=== PATIENT | female | born 1985 | race Two or more races ===

== ENCOUNTER 2020-07-28 12:59 | Outpatient (REF) | payer MEDICAID, SELFPAY | END 2020-07-28 13:00 | disposition home or self-care (01) | LOC: HO.LAB 12:59 | PROVIDERS: Visit Provider Internal Medicine | DX: Z20.828 Contact with and (suspected) exposure to other viral communicable diseases (principal) | CPT/HCPCS: C9803; U0003 ==

== ENCOUNTER → 2022-07-04 08:49 | Outpatient (BNVA) | payer OTHER, SELFPAY | PROVIDERS: Visit Provider Nurse Practitioner Family | DX: G43.109 Migraine with aura, not intractable, without status migrainosus (principal); K59.00 Constipation, unspecified | CPT/HCPCS: 99202 ==

== ENCOUNTER → 2022-09-12 09:14 | Outpatient (BNVA) | payer OTHER, SELFPAY | PROVIDERS: PCP Physician Assistant; Visit Provider Nurse Practitioner Family | DX: G43.109 Migraine with aura, not intractable, without status migrainosus (principal); R11.0 Nausea; K59.00 Constipation, unspecified | CPT/HCPCS: 99212 ==

== ENCOUNTER → 2022-11-14 09:21 | Outpatient (BNVA) | payer OTHER, SELFPAY | PROVIDERS: PCP Physician Assistant; Visit Provider Nurse Practitioner Family | DX: G43.109 Migraine with aura, not intractable, without status migrainosus (principal); R41.3 Other amnesia; K59.00 Constipation, unspecified | CPT/HCPCS: 99212 ==

== ENCOUNTER 2023-09-02 08:37 | Outpatient (AMB) | payer OTHER, SELFPAY ==
--- NOTE | 2023-09-02 08:40 | MHC.OFFVIS ---
Intake Vital Signs 09/02/23 08:41 Height 5 ft 4 in Weight 207 lb 6 oz BMI 35.6 BP 132/78 Blood Pressure Location Rt brachial Position Sitting Pulse 62 Pulse Source Pulse Oximeter Pulse Oximetry (%) 96 Oxygen Delivery Method Room Air Intake Visit Reasons: Follow up - Migraines - LVM Intake Note: Patient presents for migraines Allergies amoxicillin Allergy (Unknown, Verified 09/02/23 08:42) Blister azithromycin Allergy (Unknown, Verified 09/02/23 08:42) Hives apples Allergy (Severe, Uncoded 09/02/23 08:42) Anaphylaxis seasonal fruit Allergy (Severe, Uncoded 09/02/23 08:42) itchy throat HPI HPI Comments History of Present Illness Details 37-yr-old female presents for f/u visit. Pt denies any significant interval medical changes. She has been seeing [facility]- for BUE L > R numbness and tingling. She had cortisone injections which were unhelpful. She had a BUE NCS at [facility] She is working with Dr Ba for neck pain, pt states she has disc disease specifically at C5-C6. She states has been advised to retry PT, and if ineffective, she may need c-spine surgery. She also wonders about her chronic low back pain. She had an MRI sometime last yr, which was abnormal. Pt states she plans to discuss these results w/ Dr Ba. She wonders if the neck pain is worsening her headaches. Overall, atogepant is still helping- having a couple of headaches per week.. [facility] Medical History (Updated 09/07/23 @ 22:39 by LONA Jones) Memory difficulties Heart murmur Depression Bronchitis Arthritis Restless leg syndrome Anemia GERD (gastroesophageal reflux disease) Surgical History H/O hernia repair H/O tubal ligation History of tonsillectomy History of surgery on lower extremity Family History Family/Other Bipolar 1 disorder Brain cancer Ovarian ca Diabetes Emphysema of left lung HTN (hypertension) Thyroid disease Allergic rhinitis Sarcoma Social History Alcohol intake: current Patient Tobacco Use Status: Current everyday Tobacco user Substance Use Type: Marijuana Review of Systems Const All systems reviewed & are unremarkable except as noted in HPI and below Physical Exam Vital Signs: Last Vital Signs Pulse 62 09/02/23 08:41 BP 132/78 09/02/23 08:41 Pulse Ox 96 09/02/23 08:41 Oxygen Delivery Method Room Air 09/02/23 08:41 BMI result Body Mass Index 35.6 Const General: cooperative and no acute distress Orientation/consciousness: patient oriented x3 HEENT Head: Yes normocephalic Resp Effort & Inspection: normal respiratory effort and able to speak in complete sentences Neuro General: patient oriented x3, gait normal and CN's II-XI intact bilaterally Cognition (Neuro): normal cognition Motor exam (neuro): 5/5 motor strength present throughout Psych Appearance: grossly normal Mental Status: mental status grossly normal Speech and movement: Normal speech and movement present Affect: normal affect Attitude: cooperative Thought process: Normal thought process present Thought content: Normal thought content present Insight: Good insight present (Psych) Judgement: Good judgement present (Psych) Assessment & Plan Assessment & Plan (1) Chronic migraine with aura: Code(s): G43.109 - Migraine with aura, not intractable, without status migrainosus (2) Constipation: Code(s): K59.00 - Constipation, unspecified (3) Neck pain: Code(s): M54.2 - Cervicalgia (4) Back pain: Code(s): M54.9 - Dorsalgia, unspecified Plan For overall headache management: Continue optimizing good self-care, including but not limited to maintaining a healthy diet and fluid intake, adequate sleep, and engaging in regular physical activity. Track headaches. ? For acute headache treatment: Continue Sumatriptan and Rizatripatn prn- do not take on the same day. Reviewed that either may be repeated after 2 hrs (max 2 whole tabs per day). Ondansetron ODT 8mg q 8-12hrs prn N/V. Previous med trials: Sumatriptan inj- worked, but caused bruising. ? For headache prevention medication: Continue Riboflavin 400mg qam Continue Magnesium 400mg qhs Continue Atogepant 30mg qhs. Continue senna 1-2 tabs qhs prn constipation. Previous med trials- Amitriptyline- Ineffective. Venlafaxine- ineffective, Topiramate- ineffective, Sphenoid-ganglion blocks- ineffective and not tolerated, Nurtec ODT 75mg qod- not tolerated Migraine tx contraindications- BBs d/t asthma/bronchitis. Note: Pt is needle phobic, and is adverse to taking nasal spray formulations. ? For memory loss: Continue being mindful and using adaptive strategies. ? f/u in 5-6 months or sooner prn new/worsening s/s. Coding Level of Care Code Est Pt Level 4 (78210) Diagnoses Chronic migraine with aura G43.109 Constipation K59.00 Neck pain M54.2 Back pain M54.9
[2023-09-02 08:41] VITALS: BP 132/78; PULSE 62; O2SAT 96; BMI 35.6
== END 2023-09-02 09:23 | disposition home or self-care (01) ==
PROVIDERS: PCP Physician Assistant; Visit Provider Nurse Practitioner Family
DX: G43.109 Migraine with aura, not intractable, without status migrainosus (principal); K59.00 Constipation, unspecified; M54.2 Cervicalgia; M54.9 Dorsalgia, unspecified
CPT/HCPCS: 99214

== ENCOUNTER → 2023-09-02 08:37 | Outpatient (BNVA) | payer OTHER, SELFPAY | PROVIDERS: PCP Physician Assistant; Visit Provider Nurse Practitioner Family | DX: G43.109 Migraine with aura, not intractable, without status migrainosus (principal); K59.00 Constipation, unspecified; M54.2 Cervicalgia; M54.9 Dorsalgia, unspecified | CPT/HCPCS: 99212 ==

== ENCOUNTER 2024-02-02 08:04 | Outpatient (AMB) | payer OTHER, SELFPAY ==
--- NOTE | 2024-02-02 08:09 | A.OFFVIS_ITS ---
Vital Signs 02/02/24 08:10 Height 5 ft 4 in Weight 205 lb BMI 35.2 BP 126/78 Blood Pressure Location Rt brachial Position Sitting Pulse 63 Pulse Source Pulse Oximeter Pulse Oximetry (%) 99 Oxygen Delivery Method Room Air Intake Visit Reasons: 5 mnts f/u for migraines-CONF Intake Note: Patient presents for 5 months f/u migraines. Patient needs refill. Allergies amoxicillin Allergy (Unknown, Verified 02/02/24 08:29) Blister azithromycin Allergy (Unknown, Verified 02/02/24 08:29) Hives apples Allergy (Severe, Uncoded 02/02/24 08:29) Anaphylaxis seasonal fruit Allergy (Severe, Uncoded 02/02/24 08:29) itchy throat Medication List - Last Reconciled 02/02/24 by LONA Jones albuterol sulfate 90 mcg/actuation (Ventolin HFA) 2 puffs inhalation Q6H PRN albuterol sulfate mg inhalation Q6H PRN atogepant 30 mg PO DAILY 30 days bupropion HCl 75 mg PO DAILY buspirone 5 mg PO TID cholecalciferol (vitamin D3) 50 mcg PO DAILY clonazepam 1 mg PO BID diclofenac potassium 20 mg PO QID dicyclomine 20 mg PO PRN docusate sodium 100 mg PO BID epinephrine IM DIRECTED esomeprazole magnesium 20 mg PO QAM fluticasone propion-salmeterol 230-21 mcg/actuation (Advair HFA) 2 puffs inhalation BID lubiprostone 24 mcg PO BID magnesium oxide 400 mg PO BEDTIME 30 days meloxicam 7.5 mg PO DAILY montelukast 10 mg PO BEDTIME nabumetone 500 mg PO BID nicotine 1 patch topical DAILY nortriptyline 25 mg PO BEDTIME olopatadine 0.1% 1 drp ophthalmic (eye) BID ondansetron 8 mg PO Q8-12H PRN 30 days prazosin 1 mg PO BEDTIME pregabalin 75 mg PO BID quetiapine 25 mg PO BID riboflavin (vitamin B2) 400 mg PO DAILY 30 days rizatriptan 5 - 10 mg (0.5 - 1 x 10 mg) PO Q2H PRN 21 days sennosides (senna) 8.6 - 17.2 mg (1 - 2 x 8.6 mg) PO BEDTIME PRN 30 days sumatriptan succinate 50 - 100 mg orally at onset of headache, may repeat in 2 hrs PRN; max 2 tabs per day or 4 tabs/week (may take with Ibuprofen) 30 days tiotropium bromide 2.5 mcg/actuation 2 puffs inhalation DAILY venlafaxine ER 37.5 mg PO BEDTIME vortioxetine (Trintellix) 10 mg PO DAILY zolpidem ER 12.5 mg PO BEDTIME PRN HPI Comments Details: 38-yr-old female presents for f/u visit. Pt reports she saw Dr Ba, neurosurgeon, informed her that she has a C5-6 disc bulging to the left. She was advised to undergo c-spine surgery- however she has to quit smoking, which she is working on. She reports she is prone to numbness in her LUE and her whole body. Also can have Right or Left Low back pain shooting down the posterior legs. Has recently done PT- has been ordered a neck stretcher. Pt notes she has is struggling to find housing. She has had 5 severe migraine attacks since the last visit. When she has a severe migraine, she takes her sumatripatn or rizatriptan, but still needs to take a hot shower and lay in a dark room. Baseline headache characteristics: Headache questionnaire: Headache: 6/10, Small pulsating pain, Right frontal, behind the ears, or base of neck, or crown of head. If headache is frontal, she may see spots. Sometimes may have photophobia, phonophobia, osmophobia. Postdrome: Fatigue, low energy Migraine questionnaire: Aura: Sparkling and flashing lights a few minutes before. Headache: Severe 10/10, Feels like an internal jackhammer, pounding holocranial pain a/w Flashing lights, sees black dots, Photophobia, phonophobia, osmophobia, nausea, GI upset, generalized weakness, not quite right in space dizziness, orthostatic, lightheadedness, aggravate arthritis symptoms, itchy/teary eyes, brain fog w/ some stuttering, spacing out, activity intolerance. [facility] Medical History (Updated 09/07/23 @ 22:39 by LONA Jones) Memory difficulties Heart murmur Depression Bronchitis Arthritis Restless leg syndrome Anemia GERD (gastroesophageal reflux disease) Surgical History H/O hernia repair H/O tubal ligation History of tonsillectomy History of surgery on lower extremity Family History Family/Other Bipolar 1 disorder Brain cancer Ovarian ca Diabetes Emphysema of left lung HTN (hypertension) Thyroid disease Allergic rhinitis Sarcoma Social History Alcohol intake: current Patient Tobacco Use Status: Current everyday Tobacco user Substance Use Type: Marijuana Physical Exam Vital Signs: Last Vital Signs Pulse 63 02/02/24 08:10 BP 126/78 02/02/24 08:10 Pulse Ox 99 02/02/24 08:10 Oxygen Delivery Method Room Air 02/02/24 08:10 BMI result Body Mass Index 35.2 Const General: cooperative and no acute distress Orientation/consciousness: patient oriented x3 Resp Effort & Inspection: normal respiratory effort and able to speak in complete sentences Neuro General: patient oriented x3 Cranial nerves: Yes CN's II-XII intact bilaterally Cognition (Neuro): normal cognition Psych Appearance: grossly normal Mental Status: mental status grossly normal Speech and movement: Normal speech and movement present Affect: normal affect Attitude: cooperative Assessment & Plan Assessment & Plan (1) Chronic migraine with aura: Code(s): G43.109 - Migraine with aura, not intractable, without status migrainosus Category: Medical (2) Neck pain: Code(s): M54.2 - Cervicalgia Category: Medical (3) Back pain: Code(s): M54.9 - Dorsalgia, unspecified Category: Medical Plan For overall headache management: Continue optimizing good self-care, including but not limited to maintaining a healthy diet and fluid intake, adequate sleep, and engaging in regular physical activity. Track headaches. For neck and back pain: Continue PT exercises Follow-up w/ Dr Ba. ? For acute headache treatment: Trial Eletriptan 40mg prn, MDD 2 tabs. as sumatriptan and rizatriptan are not always fully effective. In the meantime, continue Sumatriptan and Rizatriptan prn- do not take on the same day. Reviewed that either may be repeated after 2 hrs (max 2 whole tabs per day). Ondansetron ODT 8mg q 8-12hrs prn N/V. Previous med trials: Sumatriptan inj- worked, but caused bruising. ? For headache prevention medication: Continue Riboflavin 400mg qam Continue Magnesium 400mg qhs Continue Atogepant 30mg qhs. Continue senna 1-2 tabs qhs prn constipation. Previous med trials- Amitriptyline- Ineffective. Venlafaxine- ineffective, Topiramate- ineffective, Sphenoid-ganglion blocks- ineffective and not tolerated, Nurtec ODT 75mg qod- not tolerated Migraine tx contraindications- BBs d/t asthma/bronchitis. Note: Pt is needle phobic, and is adverse to taking nasal spray formulations. ? For memory loss: Continue being mindful and using adaptive strategies. ? f/u in 6 months or sooner prn new/worsening s/s. Medications: New eletriptan take 1 tab at onset of headache; if no relief, may repeat 1 tab after at least 2 hrs; max = 2 tabs/24 hrs orally . PRN; 30 days 12 tabs 6RF migraine headache MDD 2 tabs Refilled atogepant 30 mg PO DAILY 30 days 30 tabs 6RF Coding Level of Care Code Est Pt Level 4 (36735) Diagnoses Chronic migraine with aura G43.109 Neck pain M54.2 Back pain M54.9
[2024-02-02 08:10] VITALS: BP 126/78; PULSE 63; O2SAT 99; BMI 35.2
== END 2024-02-02 09:15 | disposition home or self-care (01) ==
PROVIDERS: PCP Physician Assistant; Visit Provider Nurse Practitioner Family
DX: G43.109 Migraine with aura, not intractable, without status migrainosus (principal); M54.2 Cervicalgia; M54.9 Dorsalgia, unspecified
CPT/HCPCS: 99214

== ENCOUNTER → 2024-02-02 08:04 | Outpatient (BNVA) | payer OTHER, SELFPAY | PROVIDERS: PCP Physician Assistant; Visit Provider Nurse Practitioner Family | DX: G43.709 Chronic migraine without aura, not intractable, without status migrainosus (principal); M54.2 Cervicalgia; M54.9 Dorsalgia, unspecified | CPT/HCPCS: 99212 ==

== ENCOUNTER 2024-08-19 12:47 | Outpatient (AMB) | payer OTHER, SELFPAY ==
[2024-08-19 12:59] VITALS: BMI 36.2
--- NOTE | 2024-08-19 12:59 | MHC.OFFVIS ---
Vital Signs 08/19/24 12:59 Height 5 ft 4 in Weight 211 lb BMI 36.2 Intake Visit Reasons: 7 Month F/U Intake Note: Patient present for follow up. Allergies amoxicillin Allergy (Unknown, Verified 08/19/24 13:01) Blister azithromycin Allergy (Unknown, Verified 08/19/24 13:01) Hives apples Allergy (Severe, Uncoded 08/19/24 13:01) Anaphylaxis seasonal fruit Allergy (Severe, Uncoded 08/19/24 13:01) itchy throat HPI Comments Details: 38-yr-old female presents for f/u visit of Chronic Migraines. Interval Medical History: Pt reports she saw Dr Ba, neurosurgeon, informed her that she has a C5-6 disc bulging to the left. She was advised to undergo c-spine surgery- however she has to quit smoking, which she is working on. She reports she is prone to numbness in her LUE and her whole body. Also can have Right or Left Low back pain shooting down the posterior legs. Has recently done PT- has been ordered a neck stretcher. Lives in an apartment with her fiance. Sleep is fragmented, excessive daytime sleepiness, gasping, choking, Pulmonologyy referred her for an in lab polysomnography post Echocardiogram and murmur on exam. Bedtime is 8-11pm gets up 3-4am d/t back pain, uses heating pad goes back to bed if able. Short term memory is worse, she is more forgetful. She has had 7-10 severe migraine attacks since the last visit, 8-9 intensity, can last 24 hours to 72 hours. When she has a severe migraine, she takes Eletriptan, then Rizatriptan, 2-4 hours later, needs to take a hot shower and lay in a dark room. Takes Qulipta daily for chronic migraines. Baseline headache characteristics: Headache questionnaire: Headache: 6/10, Small pulsating pain, Right frontal, behind the ears, or base of neck, or crown of head. If headache is frontal, she may see spots lasting 3-10 hours, sometimes can last 24 hours to 72 hours. Sometimes may have photophobia, phonophobia, osmophobia. Postdrome: Fatigue, low energy Migraine questionnaire: Aura: Sparkling and flashing lights a few minutes before. Headache: Severe 10/10, Feels like an internal jackhammer, pounding holocranial pain a/w Flashing lights, sees black dots, Photophobia, phonophobia, osmophobia, is the prodrome, to nausea, GI upset, generalized weakness, not quite right in space dizziness, orthostatic, lightheadedness, aggravate arthritis symptoms, itchy/teary eyes, brain fog w/ some stuttering, spacing out, activity intolerance. Mood is stable 2x a month speaks with therapist, at [facility] , has a good support network. Will address BMI after her surgery. Declines Botox, d/t C-spine issues. [facility] Medical History Memory difficulties Heart murmur Depression Bronchitis Arthritis Restless leg syndrome Anemia GERD (gastroesophageal reflux disease) Surgical History H/O hernia repair H/O tubal ligation History of tonsillectomy History of surgery on lower extremity Family History Family/Other Bipolar 1 disorder Brain cancer Ovarian ca Diabetes Emphysema of left lung HTN (hypertension) Thyroid disease Allergic rhinitis Sar[place] Social History Alcohol intake: current Patient Tobacco Use Status: Current everyday Tobacco user Substance Use Type: Marijuana Review of Systems Const All systems reviewed & are unremarkable except as noted in HPI and below Physical Exam Vital Signs: BMI result Body Mass Index 36.2 Const General: cooperative and no acute distress Orientation/consciousness: patient oriented x3 Resp Effort & Inspection: normal respiratory effort and able to speak in complete sentences Neuro General: patient oriented x3 Cranial nerves: Yes CN's II-XII intact bilaterally Cognition (Neuro): normal cognition Psych Appearance: grossly normal Mental Status: mental status grossly normal Speech and movement: Normal speech and movement present Affect: normal affect Attitude: cooperative Assessment & Plan Assessment & Plan (1) Chronic migraine with aura: Code(s): G43.109 - Migraine with aura, not intractable, without status migrainosus Category: Medical Qualifiers: Status migrainosus presence: without status migrainosus Intractability: not intractable Qualified Code(s): G43.E09 - Chronic migraine with aura, not intractable, without status migrainosus (2) Neck pain: Code(s): M54.2 - Cervicalgia Category: Medical (3) Back pain: Code(s): M54.9 - Dorsalgia, unspecified Category: Medical Qualifiers: Back pain location: thoracic back pain Chronicity: chronic Back pain laterality: midline Qualified Code(s): M54.6 - Pain in thoracic spine; G89.29 - Other chronic pain Plan For overall headache management: Continue optimizing good self-care, including but not limited to maintaining a healthy diet and fluid intake, adequate sleep, and engaging in regular physical activity. Track headaches, migraine bernabe luis, or diary. For neck and back pain: Continue PT exercises Follow-up w/ Dr Ba. ? For acute headache treatment: Trial Eletriptan 40mg prn, MDD 2 tabs. as sumatriptan and rizatriptan are not always fully effective. In the meantime, continue Sumatriptan and Rizatriptan prn- do not take on the same day. Reviewed that either may be repeated after 2 hrs (max 2 whole tabs per day). Ondansetron ODT 8mg q 8-12hrs prn N/V. Previous med trials: Sumatriptan inj- worked, but caused bruising. ? For headache prevention medication: Continue Riboflavin 400mg qam Continue Magnesium 400mg qhs Continue Atogepant (Qulipta) 30mg will increase to 60mg PO daily. Continue senna 1-2 tabs qhs prn constipation. Previous med trials- Amitriptyline- Ineffective. Venlafaxine- ineffective, Topiramate- ineffective, Sphenoid-ganglion blocks- ineffective and not tolerated, Nurtec ODT 75mg qod- not tolerated Migraine tx contraindications- BBs d/t asthma/bronchitis. Note: Pt is needle phobic, and is adverse to taking nasal spray formulations. ? For memory loss: Continue being mindful and using adaptive strategies, to avoid stressors. Identify triggers and eliminate if possible. ? Sleep Study in Lab Polysomnography per Pulmonology ([facility] f/u in 6 months or sooner prn new/worsening s/s. Orders: Orders RT PSG in-lab sleep study Today G43.E09 - Chronic migraine with aura, not intractable, without status migrainosus, M54.2 - Cervicalgia Medications: Changed From atogepant 30 mg PO DAILY 30 days 30 tabs 6RF To atogepant 60 mg PO DAILY 30 days 30 tabs 6RF Refilled riboflavin (vitamin B2) 400 mg PO DAILY 30 days 30 tabs 6RF Coding Level of Care Code Est Pt Level 4 (01693) Diagnoses Chronic migraine with aura without status migrainosus, not intractable G43.E09 Status migrainosus presence: without status migrainosus Intractability: not intractable Neck pain M54.2 Chronic midline thoracic back pain M54.6; G89.29 Back pain location: thoracic back pain Chronicity: chronic Back pain laterality: midline Time Spent (min) 45 Comment worsening migraines
== END 2024-08-19 14:01 | disposition home or self-care (01) ==
LOC: HO.HSMS 12:47
PROVIDERS: PCP Physician Assistant; Visit Provider Physician Assistant Medical
DX: G43.E09 Chronic migraine with aura, not intractable, without status migrainosus (principal); M54.2 Cervicalgia; M54.6 Pain in thoracic spine; G89.29 Other chronic pain
CPT/HCPCS: 99214

== ENCOUNTER → 2024-08-19 12:47 | Outpatient (BNVA) | payer OTHER, SELFPAY | PROVIDERS: PCP Physician Assistant; Visit Provider Physician Assistant Medical | DX: G43.E09 Chronic migraine with aura, not intractable, without status migrainosus (principal); M54.2 Cervicalgia; M54.6 Pain in thoracic spine; G89.29 Other chronic pain | CPT/HCPCS: 99212 ==

== ENCOUNTER 2024-11-15 09:19 | Outpatient (AMB) | payer OTHER, SELFPAY ==
[2024-11-15 09:59] VITALS: BP 106/80; PULSE 82; O2SAT 96; BMI 36.6
--- NOTE | 2024-11-15 09:59 | A.OFFVIS_ITS ---
Vital Signs 11/15/24 09:59 Height 5 ft 4 in Weight 213 lb BMI 36.6 BP 106/80 Blood Pressure Location Lt brachial Position Sitting Pulse 82 Pulse Source Pulse Oximeter Pulse Oximetry (%) 96 Oxygen Delivery Method Room Air Intake Visit Reasons: 3 mo follow up Intake Note: Patient presents for 3 month follow up for Hypersomnia. *Patient scheduled for HST at [facility] to call for results 11/09* Allergies amoxicillin Allergy (Unknown, Verified 11/15/24 10:02) Blister azithromycin Allergy (Unknown, Verified 11/15/24 10:02) Hives apples Allergy (Severe, Uncoded 08/19/24 13:01) Anaphylaxis seasonal fruit Allergy (Severe, Uncoded 08/19/24 13:01) itchy throat HPI Comments Details: 39-yr-old female presents for f/u visit of Chronic Migraines. Interval Medical History: Pt reports she saw Dr Ba, neurosurgeon, informed her that she has a C5-6 disc bulging to the left. She was advised to undergo c-spine surgery- however she has to quit smoking, which she is working on. She reports she is prone to numbness in her LUE and her whole body. Also can have Right or Left Low back pain shooting down the posterior legs. Has recently done PT- has been ordered a neck stretcher. 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 Sleep is fragmented, excessive daytime sleepiness, gasping, choking, pulmonology referred her for an in lab polysomnography post Echocardiogram d/t murmur heard on exam. Bedtime is 8-11pm gets up 3-4am d/t back pain, uses heating pad goes back to bed if able. Short term memory is worse, she is more forgetful, has difficulty with tasks and writes down everything. She has had 7-10 severe migraine attacks since the last visit, 8-9 severity, can last 24 hours to 72 hours. When she has a severe migraine, she takes Eletriptan, then Rizatriptan, 2-4 hours later, needs to take a hot shower and lay in a dark room. Takes Qulipta daily for chronic migraines. 10/2024 - 11/2024 had 2 migraines and is learning to channel her emotions in a positive manner. Mood is stable 2x a month speaks with therapist, at [facility] , has a good support network. Will address BMI after her surgery. Learning to establish good boundaries and doing solid work with her counselor. Declines Botox, d/t C-spine issues. HST with [facility] [employer] wants her to do the study at [facility] - to do the [facility] - fri - will drop - Stopped smoking - 1 month - free- on chantix still second dosing - with her PCP increased dose to AM only. No cravings - pops a mint. Baseline headache characteristics: Headache questionnaire: Headache: 6/10, Small pulsating pain, Right frontal, behind the ears, or base of neck, or crown of head. If headache is frontal, she may see spots lasting 3-10 hours, sometimes can last 24 hours to 72 hours. Sometimes may have photophobia, phonophobia, osmophobia. Postdrome: Fatigue, low energy Migraine questionnaire: Aura: Sparkling and flashing lights a few minutes before. Headache: Severe 10/10, Feels like an internal jackhammer, pounding holocranial pain a/w Flashing lights, sees black dots, Photophobia, phonophobia, osmophobia, is the prodrome, to nausea, GI upset, generalized weakness, not quite right in space dizziness, orthostatic, lightheadedness, aggravate arthritis symptoms, itchy/teary eyes, brain fog w/ some stuttering, spacing out, activity intolerance. [facility] Medical History Memory difficulties Heart murmur Depression Bronchitis Arthritis Restless leg syndrome Anemia GERD (gastroesophageal reflux disease) Surgical History H/O hernia repair H/O tubal ligation History of tonsillectomy History of surgery on lower extremity Family History Family/Other Bipolar 1 disorder Brain cancer Ovarian ca Diabetes Emphysema of left lung HTN (hypertension) Thyroid disease Allergic rhinitis Sarcoma Social History Alcohol intake: current Patient Tobacco Use Status: Current everyday Tobacco user Substance Use Type: Marijuana Physical Exam Vital Signs: Last Vital Signs Pulse 82 11/15/24 09:59 BP 106/80 11/15/24 09:59 Pulse Ox 96 11/15/24 09:59 Oxygen Delivery Method Room Air 11/15/24 09:59 BMI result Body Mass Index 36.6 Const General: cooperative and no acute distress Orientation/consciousness: patient oriented x3 Resp Effort & Inspection: normal respiratory effort and able to speak in complete sentences Neuro General: patient oriented x3 Cranial nerves: Yes CN's II-XII intact bilaterally Cognition (Neuro): normal cognition Psych Appearance: grossly normal Mental Status: mental status grossly normal Speech and movement: Normal speech and movement present Affect: normal affect Attitude: cooperative Assessment & Plan Assessment & Plan (1) Chronic migraine with aura: Code(s): G43.109 - Migraine with aura, not intractable, without status migrainosus Category: Medical Qualifiers: Intractability: not intractable Status migrainosus presence: without status migrainosus Qualified Code(s): G43.E09 - Chronic migraine with aura, not intractable, without status migrainosus (2) Neck pain: Code(s): M54.2 - Cervicalgia Category: Medical (3) Back pain: Code(s): M54.9 - Dorsalgia, unspecified Category: Medical Qualifiers: Back pain laterality: midline Back pain location: thoracic back pain Chronicity: chronic Qualified Code(s): M54.6 - Pain in thoracic spine; G89.29 - Other chronic pain Plan For overall headache management: Continue optimizing good self-care, including but not limited to maintaining a healthy diet and fluid intake, adequate sleep, and engaging in regular physical activity. Track headaches, migraine bernabe luis, or diary. For neck and back pain: Continue PT exercises Follow-up w/ Dr Ba. ? For acute headache treatment: Trial Eletriptan 40mg prn, MDD 2 tabs. as sumatriptan and rizatriptan are not always fully effective. In the meantime, continue Sumatriptan and Rizatriptan prn- do not take on the same day. Reviewed that either may be repeated after 2 hrs (max 2 whole tabs per day). Ondansetron ODT 8mg q 8-12hrs prn N/V. Previous med trials: Sumatriptan inj- worked, but caused bruising. ? For headache prevention medication: Continue Riboflavin 400mg qam Continue Magnesium 400mg qhs Continue Atogepant (Qulipta) 30mg will increase to 60mg PO daily. Continue senna 1-2 tabs qhs prn constipation. Previous med trials- Amitriptyline- Ineffective. Venlafaxine- ineffective, Topiramate- ineffective, Sphenoid-ganglion blocks- ineffective and not tolerated, Nurtec ODT 75mg qod- not tolerated Migraine tx contraindications- BBs d/t asthma/bronchitis. Note: Pt is needle phobic, and is adverse to taking nasal spray formulations. ?Dr. Ba - tension unit - Emre - neck stretching exercise- - fibromyalgia - electrodes- tiger balm - cold and heat warm- For memory loss:Writes things -- CBT - Journaling - Continue being mindful and using adaptive strategies, to avoid stressors. Identify triggers and eliminate if possible. ? Sleep Study in Lab Polysomnography per Pulmonology ([place] Referral). f/u in 3 months - Medications: Refilled magnesium oxide may hold for loose stools 400 mg PO BEDTIME 30 tabs 6RF 30 days atogepant 60 mg PO DAILY 30 tabs 6RF 30 days Discontinued sumatriptan succinate Discontinued Reason: Patient no longer taking (0.5 - 1 x 100 mg) 50 - 100 mg orally at onset of headache, may repeat in 2 hrs PRN; max 2 tabs per day or 4 tabs/week (may take with Ibuprofen) 30 days 12 tabs 6RF migraine headache sennosides (senna) Discontinued Reason: Patient Refused 8.6 - 17.2 mg (1 - 2 x 8.6 mg) PO BEDTIME 30 days PRN 60 tabs 3RF constipation Patient Instructions: Sleep Hygiene provided. Coding Level of Care Code Est Pt Level 4 (46238) Complex EM visit Add On G2211 Diagnoses Chronic migraine with aura without status migrainosus, not intractable G43.E09 Intractability: not intractable Status migrainosus presence: without status migrainosus Neck pain M54.2 Chronic midline thoracic back pain M54.6; G89.29 Back pain laterality: midline Back pain location: thoracic back pain Chronicity: chronic Time Spent (min) 40
--- OUTSIDE RECORDS SUMMARY | 2024-11-15 10:08 | XMS_ITS | Encounter Summary ---
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 [address] [facility] [address] [place] [address] Radha Blackburn MA Social History Tobacco Use Types Packs/Day Years Used Date Smoking Tobacco: Former Cigarettes 0.3 9.1 S tarted: 10/10/2015 Smokeless Tobacco: Never Alcohol Use Standard Drinks/Week Comments Yes 0 (1 standard drink = 0.6 oz pur e alcohol) Comments Unknown Sex and Gender Information Value Date Recorded Sex Assigned at Female 07/10/2023 10:57 AM EDT Legal Sex Female 5:01 AM EST Gender Identity Female 07/10/2023 10:57 AM EDT Sexual Orientation Bisexual 07/10/2023 10 :57 AM EDT documented as of this encounter Progress Notes * Rupinder Torre MA - 2024 4:30 PM EST Appointment scheduled for 11/23/24 @ 2:15pm w/. per patient's request * AYLIN Martinez - 2024 2:06 PM EST I spoke to Ms. Reyez. She is off of all nicotine products and wants to proceed with surgery. It hasbeen about 10 months since she was last evaluated and her MRI is a year and a half old. Please callher and schedule an appointment for her to come in for an evaluation. Please remind her to stop at [facility] for x-rays on her way in. * Radha Blackburn MA - 11/09/2024 2:40 PM EST Patient stopped by the office stating she quit smoking and would like to proceed with surgery. Lastvisit was almost a year ago, question re-eval, need for updated imaging. Also asking for order for traction unit, previous order not valid. Please call documented in this encounter Plan of Treatment Upcoming Encounters Date Type Department Care Team (Late st Contact Info) Description 11/23/2024 2:15 PM EDT Office Visit Neurosurgery [facility] [address] [facility] [address] [facility] [address] [place] [phone] Crys Ba MD 175 [place] [address] 12/15/2024 10:10 AM EDT Office Visit Gastroenterology - [address] [facility] [address] [facility] [address] [facility] [address] [place] [address] Emily Escoto PA [address] [facility] [address] [facility] [address] [place] [address] 01/25/2025 10:30 AM EDT Office Visit Pulmonolgy - [place] [address] [facility] [address] [facility] [address] [place] [phone] Jigna Kamara NP 175 [facility] [address] [place] [address] 05/10/2025 9:00 AM EDT Office Visit Internal Medicine - [place] 175 [facility] [address] [place] [address] Shell Gomes PA [address] [address] Scheduled Orders Name Type Priority Associated Diagnoses Orde r Schedule XR Cervical Spine 4-5 Views Imaging Routine Cervical spondylosis with radiculopathy Expected: 2024, Expires: 2025 documented as of this encounter Visit Diagnoses Diagnosis Cervical spondylosis with radiculopathy- Primary Cervical spondylosis with myelopathy documented in this encounter Care Teams Ge[employer] Powerplant Mechanic Helper Relationship Specialty Start Date End Date Shell Gomes PA [address] [address] PCP - General Primary Care 07/28/24 documented as of this encounter
--- OUTSIDE RECORDS SUMMARY | 2024-11-15 10:08 | XMS_ITS | Encounter Summary ---
Author Organization [facility] Address [id number] [place] [id number] Care Team Providers Care Customer Acquisition Manager Name Role Phone Shell Gomes Primary Care Provider + Reason for Visit * Reason Onset Date Comments [facility] Dental Medical Clearance Form 11/08 Encounter Details Date Type Department Care Team ([facility] Contact Info) Description 11/08/2024 Telephone Internal Medicine - [place] [address] [facility] [address] [place] [address] Marcela Patterson MA [facility] Dental Medical Clearance Form Social History Tobacco Use Types Packs/Day Years [...] as of this encounter Progress Notes * Marcela Patterson MA - 11/08/2024 1:42 PM EST Received form from [facility] Dental Medical Clearance for Dental Treatment Form. It was completed and signed by provider . Faxed to [phone] on 11/08/2024. Awaiting confirmation . documented in this encounter Plan of Treatment Upcoming Encounters Date Type Department Care Team (Late st Contact Info) Description 11/23/2024 2:15 PM EDT Office Visit Neurosurgery [place] - [place] [address] [place] [phone] Crys Ba MD 175 [place] [address] 12/15/2024 10:10 AM EDT Office Visit Gastroenterology - [address] [place] [address] [facility] [address] [place] [address] Emily Escoto PA [address] [facility] [address] [place] [address] 01/25/2025 10:30 AM EDT Office Visit Pulmonolgy - [place] [address] [facility] [address] [place] [phone] Jigna Kamara NP [address] [facility] [address] [place] [address] 05/10/2025 9:00 AM EDT Office Visit Internal Medicine - [place] [address] [facility] [address] [place] [phone] Shell Gomes PA [address] [facility] [address] [place] [address] documented as of this encounter Visit Diagnoses Not on filedocumented in this encounter Care Teams Customer Acquisition Manager Relationship Specialty Start Date End Date Shell Gomes PA [address] [facility] [address] [place] [address] PCP - General Primary Care 07/28/24 documented as of this encounter
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
--- OUTSIDE RECORDS SUMMARY | 2024-11-15 10:09 | XMS_ITS | Encounter Summary ---
Author Organization [facility] Address [address] [place] [id number] Care Team Providers Care Fashion Buying Internship Name Role Phone Shell Gomes Primary Care Provider + Reason for Referral * Consultation (Routine) - Authorized Specialty Diagnoses / Procedures Referred By Theron barry Referred To Contact Gastroenterology Diagnoses Gastroesophageal reflux disease, unspecified whether esophagitis present Shell Gomes PA 175 [facility] [address] [place] [address] Phone: tel: fax: Gastroenterology - [address] [address] Phone: tel: fax: Referral ID Status Reason Start Date Expiration Date Visits Requested Visits Authorized [id number] Authorized Specialty Services Required 11/08/2024 11/08/2025 1 1 Reason for Visit * Reason Comments Asthma Allergies Nicotine Dependence Anxiety Depression Migraine Irritable Bowel Syndrome GERD Fibromyalgia Encounter Details Date Type Department Care Team (Late st Contact Info) Description 11/08/2024 9:30 AM EST Office Visit Internal Medicine - [place] 175 [facility] [address] [place] [address] Shell Gomes PA 175 [facility] [address] [place] [address] Moderate persistent asthma without complication (Primary Dx); Perennial allergic rhinitis; Anxiety and depression; Migraine without status migrainosus, not intractable, unspecified migraine type; Irritable bowel syndrome with diarrhea; Gastroesophageal reflux disease, unspecified whether esophagitis present; Obesity (BMI 30-39.9); Fibromyalgia Social History Tobacco Use Types Packs/Day Years [...] AM EDT documented as of this encounter Last Filed Vital Signs Vital Sign Reading Time Taken Comments Blood Pressure 122/72 11/08/2024 9:13 AM EST Pulse 57 11/08/2024 9:13 AM EST Temperature - - Respiratory Rate - - Oxygen Saturation 99% 11/08/2024 9:13 AM EST Inhaled Oxygen Concentration - - Weight 96.6 kg (213 lb) 11/08/2024 9:13 AM EST Height - - Body Mass Index 36.56 06/24/2024 12:05 PM EDT documented in this encounter Ordered Prescriptions Prescription Sig Dispense Quantity Refills Last Filled Start Date End Date cholecalciferol (VITAMIN D-3) 50 mcg (2,000 unit) tablet Take 1 tablet (2,000 Units total) by mouth 1 (one) time each day. 90 tablet 1 11/08/2024 dicyclomine (BENTYL) 10 mg capsuleIndications :Irritable bowel syndrome with diarrhea Take 2 capsules (20 mg total) by mouth 4 (four) times a day if needed (stomach cramping). 120 capsule 1 11/08/2024 esomeprazole (NexIUM) [address] capsuleIndications :Gastroesophageal reflux disease, unspecified whether esophagitis present Take 1 capsule (20 mg total) by mouth 1 (one) time each day before breakfast. Do not open capsule. 90 capsule 1 11/08/2024 documented in this encounter Progress Notes * AYLIN Christensen - 11/08/2024 9:30 AM EST CHIEF COMPLAINT: Asthma, Allergies (/), Nicotine Dependence, Anxiety, Depression, Migraine (/), Irritable Bowel Syndrome (/), GERD, and Fibromyalgia IDENTIFIER: Whitley Reyez is a 38 y.o. old female. HPI: Follow-up asthma, allergies, smoking, anxiety, depression, PTSD, migraines, IBS, GERD, obesity, chronic neck and back pain/fibromyalgia and chronic left ankle pain. She was last seen by me for follow-up 05/05/2024. Last labs (CMP) done 09/02/2024. States she is compliant with her medications and denies any side effects. Asthma/allergies are stable on Symbicort, Singulair and Breana for which she is followed by an bar useful or busser and human resources benefits specialist. Using albuterol as needed, quit smoking this month, still on chantix. Anxiety/depression/PTSD are stable on zolpidem, clonazepam, Seroquel, Trintellix per psych. Migraines are stable on Qulipta for maintenance and Relpax as needed, also on nortriptyline nightly from GI for her IBS. Was followed via GI specialist at [facility] in [place] due to diarrhea tx with imodium and Bentyl, but says too far and wants referral to our GI. She also follows with neuro for her migraines. GERD is stable on Nexium. Obese with BMI 36.56, up 5 pounds since her last visit with me . Chronic neck and back pain/fibromyalgia and chronic left ankle pain (injury 2016) followed by Ortho, neurosurgery and physiatry. Bilateral carpal tunnel syndrome followed by Ortho. Tinea pedis followed by podiatry and on lamasil. Other providers: Ortho at [facility] - bilateral carpal tunnel syndrome Psychiatrist through [facility] - anxiety, depression, insomnia, PTSD, personality disorder GI at [facility] (previously seen at [place]) - GERD, IBS with constipation & diarrhea Customer Marketing Assistant through [place] - Asthma Surgeon Dr. Dumont - brittaney fundoplication for GERD 09/2021 Pediatric Registered Nurse at [facility] (previosuly Dr. Arnett) - Asthma, ,allergies Urology [facility] - nephrolithiasis Neurologist at [place] - migraines Chief Petroleum Engineer at [facility] - back pain (previosuly seen at [facility] for left ankle) STATIONARY BOILER FIREMAN through [place] Neurosurgeon Dr. Ba - neck pain Otr Driver Dr. Alex - Tinea pedis ROS: GENERAL: Negative for malaise, significant weight loss and fever RESPIRATORY: No cough, wheezing or shortness of breath CARDIOVASCULAR: No chest pain, leg swelling or palpitations SKIN: No lesions, rash or itching NEURO: + headaches PAST MEDICAL HISTORY: Patient Active Problem List Diagnosis Date Noted IBS (irritable bowel syndrome) Obesity (BMI 30-39.9) PTSD (post-traumatic stress disorder) 06/25/2024 Ovarian cyst 06/25/2024 Osteoarthritis 06/25/2024 Migraines 06/25/2024 Insomnia 06/25/2024 GERD (gastroesophageal reflux disease) 06/25/2024 Depression 06/25/2024 Chronic pain 06/25/2024 Bronchitis, allergic 06/25/2024 Kidney stones 06/25/2024 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 Back pain 06/25/2024 Anxiety 06/25/2024 Cervical spondylosis with radiculopathy 07/10/2023 Vitamin D deficiency 03/12/2022 Small intestinal bacterial overgrowth 02/26/2021 LGSIL on Pap smear of cervix 01/30/2021 Fibromyalgia 12/28/2020 Heart murmur 12/28/2020 Obstructive sleep apnea 12/28/2020 Marijuana use 12/28/2020 Thyromegaly 12/28/2020 Diverticulosis 12/28/2020 Internal hemorrhoids 12/28/2020 Polyp of colon 12/28/2020 Bilateral nephrolithiasis 12/28/2020 Hiatal hernia 12/26/2020 Moderate persistent asthma without complication 12/26/2020 Pollen-food allergy 12/26/2020 Conjunctivitis, allergic, bilateral 12/26/2020 Perennial allergic rhinitis 12/26/2020 Past Surgical History: Procedure Laterality Date ANKLE SURGERY Left 09/22/2018 PROCEDURE: HISTORICAL ANKLE SURGERY; COMMENT: tibiotalor fusion COLONOSCOPY 11/26/2018 PROCEDURE: HISTORICAL COLONOSCOPY; COMMENT: internal hemorrhoids, colon polyp, diverticulosis, upper endoscopy. 06/12/2015 colonoscopy normal w/ only fair prep) ESOPHAGOGASTRODUODENOSCOPY 03/21/2020 PROCEDURE: WA ESOPHAGOGASTRODUODENOSCOPY TRANSORAL DIAGNOSTIC; COMMENT: Kumar pH capsule deployed LAPAROSCOPY DIAGNOSTIC / BIOPSY / ASPIRATION / LYSIS 2013 PROCEDURE: PELVIS LAPAROSCOPY, DIAGNOSTIC OTHER SURGICAL HISTORY 2015 PROCEDURE: WA UNLISTED PROCEDURE LEG/ANKLE; COMMENT: ORIF OTHER SURGICAL HISTORY Bilateral 2019 PROCEDURE: WA TONSILLECTOMY & ADENOIDECTOMY AGE 12/> OTHER SURGICAL HISTORY PROCEDURE: WA DILATION & CURETTAGE DX&/THER NONOBSTETRIC; COMMENT: 06/2011 Retained placenta after stillbirth. TUBAL LIGATION 01/13/2012 PROCEDURE: HISTORICAL TUBAL LIGATION SOCIAL HISTORY: Social History Tobacco Use Smoking status: Every Day Current packs/day: 0.25 Average packs/day: 0.3 packs/day for 9.1 years (2.3 ttl pk-yrs) Types: Cigarettes Start date: 10/10/2015 Smokeless tobacco: Never Substance Use Topics Alcohol use: Yes FAMILY HISTORY: Family History Problem Relation Name Age of Onset Diabetes Mother migraines, peripheral neuropathy, cva Hypertension Mother Other (Other: sarcoma) Mother 18.00 No Known Problems Sister Asthma Brother Other (Other: allergic rhinitis) Brother Bipolar disorder Brother Ovarian cancer Maternal Grandmother 45.00 Emphysema Maternal Grandmother Hypertension Maternal Grandmother Diabetes Maternal Grandmother Hypertension Maternal Grandfather Other (Other: ckd) Maternal Grandfather Brain cancer Paternal Grandmother 65.00 Diabetes Paternal Grandmother Thyroid disease Paternal Grandmother cancer Hypertension Paternal Grandmother No Known Problems Paternal Grandfather Breast cancer Aunt 45.00 MEDICATIONS DISCONTINUED/REORDERED: Medications Discontinued During This Encounter Medication Reason hydrocortisone (ANUSOL-HC) 25 mg suppository Therapy completed nicotine (NICODERM CQ) 21 mg/24 hr Therapy completed lubiprostone (AMITIZA) 24 mcg capsule Therapy completed dicyclomine (BENTYL) 10 mg capsule Reorder esomeprazole (NexIUM) [address] capsule Reorder SUMAtriptan (IMITREX) 100 mg tablet Alternate therapy ergocalciferol (VITAMIN D-2) 1,250 mcg (50,000 unit) capsule Therapy completed cholecalciferol (VITAMIN D-3) 50 mcg (2,000 unit) tablet Reorder brexpiprazole (Rexulti) 1 mg tablet Therapy completed ACTIVE MEDICATIONS: Outpatient Medications Marked as Taking for the 11/08/24 encounter (Office Visit) with AYLIN Christensen Medication Sig Dispense Refill cholecalciferol (VITAMIN D-3) 50 mcg (2,000 unit) tablet Take 1 tablet (2,000 Units total) by mouth1 (one) time each day. 90 tablet 1 dicyclomine (BENTYL) 10 mg capsule Take 2 capsules (20 mg total) by mouth 4 (four) times a day if needed (stomach cramping). 120 capsule 1 eletriptan (RELPAX) 40 mg tablet TAKE 1 TAB ORALLY NEEDED AT ONSET OF MIGRAINE, IF NO RELIEF IN>2 HRS CAN REPEAT MAX 2 TABS/24HRS esomeprazole (NexIUM) [address] capsule Take 1 capsule (20 mg total) by mouth 1 (one) time each day before breakfast. Do not open capsule. 90 capsule 1 Qulipta 60 mg tablet Take 1 tablet by mouth 1 (one) time each day. ALLERGIES: Allergies Allergen Reactions Amoxicillin Other Dermatitis on skin and blisters Apple Swelling Lip and mouth swelling Azithromycin Hives Cat Dander Rash Fruit Extracts Oral allergies: berries, plum, peach, watermelon Also trees, grass, weeds, Shellfish Derived Fish and shellfish: pruritus and hives. Freshwater and any water PHYSICAL EXAM: Visit Vitals BP 122/72 (BP Location: Right arm, Patient Position: Sitting, BP Cuff Size: Large adult) Pulse 57 Wt 96.6 kg (213 lb) SpO2 99% BMI 36.56 kg/m?? Smoking Status Every Day BSA 2.01 m?? APPEARANCE: Alert and in no acute distress EYES: Conjunctiva and sclera normal. HEART: RRR LUNG: clear to auscultation bilaterally ABDOMEN: Obese EXTREMITIES: No edema NEURO: Awake, alert and oriented x 3 SKIN: Skin color normal. Warm and dry. LABS: Appointment on 09/02/2024 Component Date Value Ref Range Status Sodium 09/02/2024 141 133 - 145 mmol/L Final Potassium 09/02/2024 4.1 3.5 - 5.5 mmol/L Final Chloride 09/02/2024 111 (H) 96 - 110 mmol/L Final CO2 09/02/2024 26 21 - 32 mmol/L Final Anion Gap 09/02/2024 4 3 - 11 Final Glucose 09/02/2024 90 70 - 100 mg/dL Final BUN 09/02/2024 9 5 - 25 mg/dL Final Creatinine 09/02/2024 0.67 0.50 - 1.10 mg/dL Final eGFR 09/02/2024 115 >=60 mL/min/1.73m2 Final Calculation based on the Chronic Kidney Disease Epidemiology Collaboration (CKD- EPI) equation refitwithout adjustment for race. BUN/Creatinine Ratio 09/02/2024 13.4 Final Calcium 09/02/2024 9.0 8.5 - 10.5 mg/dL Final AST (SGOT) 09/02/2024 14 10 - 42 unit/L Final ALT (SGPT) 09/02/2024 18 10 - 60 unit/L Final Alkaline Phosphatase 09/02/2024 89 42 - 121 unit/L Final Total Protein 09/02/2024 6.7 6.0 - 8.0 g/dL Final Albumin 09/02/2024 3.4 3.2 - 5.0 g/dL Final Total Bilirubin 09/02/2024 0.5 0.0 - 1.4 mg/dL Final Abstract on 06/25/2024 Component Date Value Ref Range Status Gonorrhea/Chlamydia Screening 11/27/2023 Abstracted Final Annual BMP Blood Test 04/01/2024 Abstracted Final Cervical Cancer Screening: HPV 11/27/2023 Negative, Abstracted Final Pap smear 11/27/2023 Negative, Abstracted Final LDL/HDL Ratio 04/01/2024 4 0 - 4 Final Triglycerides 04/01/2024 163 (A) 0 - 150 mg/dL Final Cholesterol 04/01/2024 204 (A) 0 - 200 mg/dL Final HDL 04/01/2024 49 >=40 mg/dL Final LDL Cholesterol 04/01/2024 123 (A) 0 - 100 mg/dL Final Hemoglobin A1C 04/01/2024 5.3 <=6.5 % Final Medication and lab orders: Orders Placed This Encounter Procedures Ambulatory referral to Gastroenterology Other orders: AMB REFERRAL TO GASTROENTEROLOGY IMAGING: IMPRESSION: 1. Moderate persistent asthma without complication 2. Perennial allergic rhinitis 3. Anxiety and depression 4. Migraine without status migrainosus, not intractable, unspecified migraine type 5. Irritable bowel syndrome with diarrhea 6. Gastroesophageal reflux disease, unspecified whether esophagitis present 7. Obesity (BMI 30-39.9) 8. Fibromyalgia PLAN: 1. Moderate persistent asthma without complication/allergic rhinitis. Stable. Continue current medication regimen (see HPI). Congratulated on smoking cessation. 2. Anxiety and depression/PTSD. Stable. Continue current medication regimen per psych (see HPI). 3. Migraine headaches. Stable. Continue Qulipta for maintenance and Relpax as needed, also on nortriptyline nightly and followed by neurology. 4. IBS/GERD. Refilled Bentyl and Nexium. Referred to GI. 5. Obesity. Diet and exercise encouraged for weight loss. 6. Fibromyalgia. Follow-up with specialist (see HPI). Follow-up 6 months for physical. Call sooner if needed. AYLIN Christensen on 11/08/2024 at 10:31 AM EST documented in this encounter Plan of Treatment Upcoming Encounters Date Type Department Care Team (Late st Contact Info) Description 11/23/2024 2:15 PM EDT Office Visit Neurosurgery [facility] 175 [facility] [address] [place] [phone] Crys Ba MD 175 [place] [address] 12/15/2024 10:10 AM EDT Office Visit Gastroenterology - [address] [facility] 299 [facility] [address] [place] [phone] Emily Escoto PA 299 [facility] [address] [place] [address] 01/25/2025 10:30 AM EDT Office Visit Pulmonolgy - [place] 175 [facility] [address] [place] [phone] Jigna Kamara NP 175 [facility] [address] [place] [address] 05/10/2025 9:00 AM EDT Office Visit Internal Medicine - [place] 175 [facility] [address] [place] [phone] Shell Gomes PA 175 [facility] [address] [place] [address] Scheduled Referrals Name Type Priority Associated Diagnoses Order Schedule Ambulatory referral to Gastroenterology Outpatient Referral Routine Gastroesophageal reflux disease, unspecified whether esophagitis present 1 Occurrences starting 11/08/2024 until 11/08/2025 documented as of this encounter Visit Diagnoses Diagnosis Moderate persistent asthma without complication- Primary Perennial allergic rhinitis Allergic rhinitis, cause unspecified Anxiety and depression Migraine without status migrainosus, not intractable, unspecified migraine type Irritable bowel syndrome with diarrhea Irritable bowel syndrome Gastroesophageal reflux disease, unspecified whether esophagitis present Obesity (BMI 30-39.9) Fibromyalgia Unspecified myalgia and myositis documented in this encounter Discontinued Medications Medication Sig Discontinue Reason Start Date End Da te hydrocortisone (ANUSOL-HC) [address] 1 Suppository rectally 2 times daily for 10 days. Therapy completed 11/08/2021 11/08/2024 nicotine (NICODERM CQ) 21 mg/[address] 1 Patch onto the skin every 24 hours. Therapy completed 02/14/2023 11/08/2024 lubiprostone (AMITIZA) 24 mcg capsule TAKE 1 CAPSULE BY MOUTH TWICE A DAY WITH MEALS Therapy completed 02/06/2023 11/08/2024 dicyclomine (BENTYL) 10 mg capsule TAKE 2 CAPSULES BY MOUTH 4 TIMES DAILY (BEFORE MEALS AND NIGHTLY) Reorder 06/11/2023 11/08/2024 esomeprazole (NexIUM) [address] capsule TAKE 1 CAPSULE BY MOUTH EVERY MORNING BEFORE BREAKFAST Reorder 05/05/2023 11/08/2024 SUMAtriptan (IMITREX) 100 mg tablet Take 1 tablet by mouth daily as needed for Migraine. May repeat dose once after 2 hours, if needed. Alternate therapy 11/19/2021 11/08/2024 ergocalciferol (VITAMIN D-2) 1,250 mcg (50,000 unit) capsule Take 1 Capsule by mouth once a week. Resume taking vit d 2,000 units daily once complete Therapy completed 04/03/2024 11/08/2024 cholecalciferol (VITAMIN D-3) 50 mcg (2,000 unit) tablet Take 1 Tablet by mouth daily. Reorder 09/12/2022 11/08/2024 brexpiprazole (Rexulti) 1 mg tablet Take 1 mg by mouth daily. Therapy completed 11/08/2024 documented as of this encounter Historical Medications * This list may reflect changes made after this encounter. vortioxetine (Trintellix) 5 mg tablet Take 1 tablet (5 mg total) by mouth 1 (one) time each day. 11/08/2024 eletriptan (RELPAX) 40 mg tablet TAKE 1 TAB ORALLY NEEDED AT ONSET OF MIGRAINE, IF NO RELIEF IN>2 HRS CAN REPEAT MAX 2 TABS/24HRS 10/22/2024 Qulipta 60 mg tablet Take 1 tablet by mouth 1 (one) time each day. 09/02/2024 added in this encounter Care Teams Fashion Buying Internship Relationship Specialty Start Date End Date Shell Gomes PA [address] [place] [address] PCP - General Primary Care 07/28/24 documented as of this encounter
--- OUTSIDE RECORDS SUMMARY | 2024-11-15 10:09 | XMS_ITS | Clinical Summary ---
Author Organization [facility] Address [address] [place] [address] Care Team Providers Care Criminology Professor Name Role Phone Unavailable Primary Care Provider Unavailabl e Source Comments PLEASE NOTE, if this patient is a minor, it may be UNLAWFUL to discuss sensitive information that is contained in these records (such as FAMILY PLANNING, MENTAL HEALTH or SUBSTANCE ABUSE) with the minor patient's parent or other person without the patient's specific authorization.[facility] Immunizations Name Administration Dates Next Due Pfizer-BioNTech COVID-19 Vac cine Bivalent, (VILLARREAL PFIZER-BIONTECH COVID-19 VACCINE BIVALENT, (VILLARREAL CAP 07/27/2022 Social History Tobacco Use Types Packs/Day Years Used Date Smoking Tobacco: Never Assessed Comments Unknown Sex and Gender Information Value Date Recorded Sex Assigned at Not on file Legal Sex Female 9:59 AM PST Gender Identity Not on file Sexual Orientation Not on file Plan of Treatment Health Maintenance Due Date Last Done Comments Diabetes Screening 1985 HPV Screening 1985 Hepatitis C Screening 1985 Pap + HPV 1985 Tobacco Screening 1985 HIV Screening 2000 Relationship Safety Screening/Counseling 2000 Hypertension Screening (#1) 2003 Cervical Cancer Screening 2006 Pap Smear 2006 [id number] ( season) 2024 07/27/2022, 05/28/2022, 04/09/2021, Additional history exists Imm-Influenza (#1) 2024 05/31/2014, 06/21/1997 Alcohol and Drug Screen 09/15/2024 Depression Annual Screen 09/15/2024 Imm-DTaP/Tdap/Td (8 - Td or Tdap) 05/01/2027 05/01/2017, 04/22/2008, 08/27/1999, Additional history exists Imm-Hepatitis B Completed 06/21/1997, 07/17, 07/05/1996 Cervical Ablation/Cold-Knife Conization Discontinued Cervical Cryotherapy Discontinued Colposcopy Discontinued Endometrial Biopsy Discontinued Excision/Leep Discontinued HPV Genotyping Discontinued Vaginal Pap Discontinued Vulvoscopy Discontinued [email or web address] [employer] Member Subscriber Plan / Payer (Ef fective 2022-Present) Name:AissatouWhitley vidal Relation to Subscriber:Self Name:Whitley Reyez Payer ID:[id number] Group ID:[id number] Type:Medicaid Address: [facility] [address] [place] [address]
== END 2024-11-15 11:03 | disposition home or self-care (01) ==
PROVIDERS: PCP Physician Assistant; Visit Provider Physician Assistant Medical
DX: G43.E09 Chronic migraine with aura, not intractable, without status migrainosus (principal); M54.2 Cervicalgia; M54.6 Pain in thoracic spine; G89.29 Other chronic pain
CPT/HCPCS: 99214; G2211

== ENCOUNTER → 2024-11-15 09:19 | Outpatient (BNVA) | payer OTHER, SELFPAY | PROVIDERS: PCP Physician Assistant; Visit Provider Physician Assistant Medical | DX: G43.E09 Chronic migraine with aura, not intractable, without status migrainosus (principal); M54.2 Cervicalgia; M54.6 Pain in thoracic spine; G89.29 Other chronic pain; G47.10 Hypersomnia, unspecified | CPT/HCPCS: 99212 ==

== ENCOUNTER 2025-02-15 08:56 | Outpatient (AMB) | payer OTHER, SELFPAY ==
[2025-02-15 09:23] VITALS: BP 104/70; PULSE 74; O2SAT 97; BMI 38.1
--- NOTE | 2025-02-15 09:23 | MHC.OFFVIS ---
Vital Signs 02/15/25 09:23 Height 5 ft 4 in Weight 222 lb 2 oz BMI 38.1 BP 104/70 Blood Pressure Location Lt brachial Position Sitting Pulse 74 Pulse Source Pulse Oximeter Pulse Oximetry (%) 97 Oxygen Delivery Method Room Air Intake Visit Reasons: 3 mo follow up Intake Note: Patient presents follow up Migraine medication. Patient states has two migraines this month and effected her sleep.(February 12 tension migraine into cluster, then Wednesday 02/14 same thing.) Also, tried heat on her forehead and ice on back of neck. Tried shower and lay down in dark Room. Stopped smoking as of October. Patient also states she is having light sensitivity and has an appointment with [facility] ophthalmology Patient had neck surgery through [facility] with on January 10. Allergies amoxicillin Allergy (Unknown, Verified 02/15/25 09:26) Blister azithromycin Allergy (Unknown, Verified 02/15/25 09:26) Hives apples Allergy (Severe, Uncoded 08/19/24 13:01) Anaphylaxis seasonal fruit Allergy (Severe, Uncoded 08/19/24 13:01) itchy throat HPI Comments Details: 39-yr-old female presents for f/u visit of Chronic Migraines. HST was c/w no data of sleep apnea, machine turned off during her study. PSG will evaluate per pulmonology at [facility] Medical History: recently had surgical procedure for c5-6-7 degenerative, disc bulging with Dr. Cui, neurosurgeon. She reports she is prone to numbness in her LUE and RUE followed by ortho surgeon at [facility] and she wears compression braces bilaterally, otherwise her hands will cramp. Also can have right or left low back pain shooting down the posterior legs. She is now working as a [employer]. Her sleep is fragmented, takes a while to fall asleep, due to allergies. PFTs needs to be evaluated again uses her albuterol as exercise induced or environmentally induced symptoms are triggered. Her bedtime is 8-11pm gets up 6am, uses heating pads and ice as needed for pain. Memory Her STM is at base poor, gets lost in conversations, recall, mental clarity and attention has improved as she is seeing her therapist. She has had 5-7 severe migraine attacks since January 2025, tension and cluster migraines February 14 L/R side, 5/6 to 10/10 in severity, can last 24 hours to 72 hours. When she has a severe migraine, she takes Eletriptan, then Rizatriptan, one of the either tablet, 2-4 hours later, sometimes will needs to take a hot shower and lay in a dark room with a migraine cap on. Chronic migraines will take Qlipta 60mg po daily. Mood is stable, she is doing more and has bouts of low energy, has a good support network. She started 25mg lamotrigine mood stabilizer, trantilix pending insurance approval and learning to establish good boundaries by doing solid work with her counselor. Baseline headache characteristics: Headache questionnaire: Headache: 6/10, Small pulsating pain, Right frontal, behind the ears, or base of neck, or crown of head. If headache is frontal, she may see spots lasting 3-10 hours, sometimes can last 24 hours to 72 hours. Sometimes may have photophobia, phonophobia, osmophobia, denies n/v, dizziness, and vertigo. Postdrome: Fatigue, low energy Migraine questionnaire: Aura: Sparkling and flashing lights a few minutes before. Headache: Severe 10/10, Feels like an internal jackhammer, pounding holocranial pain a/w Flashing lights, sees black dots, Photophobia, phonophobia, osmophobia, is the prodrome, to nausea, GI upset, generalized weakness, not quite right in space dizziness, orthostatic, lightheadedness, aggravate arthritis symptoms, itchy/teary eyes, brain fog w/ some stuttering, spacing out, activity intolerance. [facility] Medical History Memory difficulties Heart murmur Depression Bronchitis Arthritis Restless leg syndrome Anemia GERD (gastroesophageal reflux disease) Surgical History (Updated 02/15/25 @ 09:27 by CHUCK Maldonado) H/O neck surgery H/O hernia repair H/O tubal ligation History of tonsillectomy History of surgery on lower extremity Family History Family/Other Bipolar 1 disorder Brain cancer Ovarian ca Diabetes Emphysema of left lung HTN (hypertension) Thyroid disease Allergic rhinitis Sarcoma Social History Alcohol intake: current Patient Tobacco Use Status: Current everyday Tobacco user Substance Use Type: Marijuana Physical Exam Vital Signs: Last Vital Signs Pulse 74 02/15/25 09:23 BP 104/70 02/15/25 09:23 Pulse Ox 97 02/15/25 09:23 Oxygen Delivery Method Room Air 02/15/25 09:23 BMI result Body Mass Index 38.1 Const General: cooperative and no acute distress Orientation/consciousness: patient oriented x3 Eyes Pupils: Equal, round and reactive pupils present Resp Effort & Inspection: normal respiratory effort and able to speak in complete sentences Neuro Other: pain on lateral rotation with limited rom General: patient oriented x3 Cranial nerves: Yes Facial sensation intact/muscles of mastication intact, Yes Equal, round and reactive pupils present, Yes Normal accommodation reflex present, Yes Normal facial strength present and Yes Midline tongue present Cognition (Neuro): normal cognition Motor exam (neuro): 5/5 motor strength present throughout Psych Appearance: grossly normal Speech and movement: Normal speech and movement present Affect: normal affect Attitude: cooperative Thought process: Normal thought process present Results Reviewed Results Reviewed: PSG pending with [facility] Assessment & Plan Assessment & Plan (1) Chronic migraine with aura: Code(s): G43.109 - Migraine with aura, not intractable, without status migrainosus Category: Medical Qualifiers: Intractability: not intractable Status migrainosus presence: without status migrainosus Qualified Code(s): G43.E09 - Chronic migraine with aura, not intractable, without status migrainosus (2) Back pain: Code(s): M54.9 - Dorsalgia, unspecified Category: Medical Qualifiers: Back pain laterality: midline Back pain location: thoracic back pain Chronicity: chronic Qualified Code(s): M54.6 - Pain in thoracic spine; G89.29 - Other chronic pain Plan For overall headache management: Continue optimizing good self-care, including but not limited to maintaining a healthy diet and fluid intake, adequate sleep, and engaging in regular physical activity. Track headaches, migraine bernabe luis, or diary. For neck and back pain: Continue PT exercises Follow-up w/ Dr Cui. ? For acute headache treatment: Continue Eletriptan 40mg prn, MDD 2 tabs. as sumatriptan and rizatriptan are not always fully effective. In the meantime, continue Sumatriptan and Rizatriptan prn- do not take on the same day. Reviewed that either may be repeated after 2 hrs (max 2 whole tabs per day). Ondansetron ODT 8mg q 8-12hrs prn N/V. Previous med trials: Sumatriptan inj- worked, but caused bruising. ? For headache prevention medication: Continue Riboflavin 400mg qam Continue Magnesium 400mg qhs Continue Atogepant (Qulipta) 30mg will increase to 60mg PO daily. Continue senna 1-2 tabs qhs prn constipation. Previous med trials- Amitriptyline- Ineffective. Venlafaxine- ineffective, Topiramate- ineffective, Sphenoid-ganglion blocks- ineffective and not tolerated, Nurtec ODT 75mg qid- not tolerated. Migraine tx contraindications- BBs d/t asthma/bronchitis. Note: Pt is needle phobic, and is adverse to taking nasal spray formulations. Dr. Cui - tension unit - Emre - neck stretching exercise- - fibromyalgia - electrodes- tiger balm - cold and heat packs prn. Continue CBT with therapist as needed weekly, biweekly. Continue being mindful and using adaptive strategies, to avoid stressors. Identify triggers and eliminate if possible. Sleep Study in Lab Polysomnography per Pulmonology ([facility]) f/u in 3 months - Medications: Refilled atogepant 60 mg PO DAILY 30 tabs 6RF 30 days rizatriptan max 2 tabs per day or 4 tabs per week 5 - 10 mg (0.5 - 1 x 10 mg) PO Q2H PRN 12 tabs 6RF migraine headache 21 days eletriptan take 1 tab at onset of headache; if no relief, may repeat 1 tab after at least 2 hrs; max = 2 tabs/24 hrs orally . PRN; 12 tabs 6RF migraine headache 30 days MDD 2 tabs Patient Instructions: Sleep Hygiene provided: set a scheduled bedtime and wake time to help regulate the circadian rhythm and balance the release of pituitary hormones. Sleep in a dark room, temperatures below 68 degrees, and no devices n bed. Limit caffeinated products 6 hours prior to bed, and limit fluids 2-4 hours prior to bed. Gentle night yoga, diffusing essential oils, and playing soft music can be relaxing. Coding Level of Care Code Est Pt Level 4 (70450) Complex EM visit Add On G2211 Diagnoses Chronic migraine with aura without status migrainosus, not intractable G43.E09 Intractability: not intractable Status migrainosus presence: without status migrainosus Chronic midline thoracic back pain M54.6; G89.29 Back pain laterality: midline Back pain location: thoracic back pain Chronicity: chronic Time Spent (min) 40 Comment improving
--- OUTSIDE RECORDS SUMMARY | 2025-02-15 09:36 | XMS_ITS | Clinical Summary ---
Author Organization [facility] Address [address] [place] [address] Care Team Providers Care Supervisor Print Line Name Role Phone Unavailable Primary Care Provider Unavailabl e Source Comments PLEASE NOTE, if this patient is a minor, it may be UNLAWFUL to discuss sensitive information that is contained in these records (such as FAMILY PLANNING, MENTAL HEALTH or SUBSTANCE ABUSE) with the minor patient's parent or other person without the patient's specific authorization.[facility] Immunizations Immunization Administration Dates Next Due Pfizer-[employer] COVID-19 Vac [...] Health Maintenance Due Date Last Done Comments Anxiety Screening 1985 Diabetes Screening 1985 HPV Screening 1985 Hepatitis C Screening 1985 Pap + HPV 1985 Tobacco Screening 1985 HIV Screening 2000 Relationship Safety Screening/Counseling 2000 Hypertension Screening (#1) 2003 Cervical Cancer Screening 2006 Pap Smear 2006 [id number] ( season) 2024 07/27/2022, 05/28/2022, 04/09/2021, Additional history exists Alcohol and Drug Screen 09/15/2024 Depression Annual Screen 09/15/2024 Imm-Influenza (Season Ended) 2025 05/31/2014, 06/21/1997 Imm-DTaP/Tdap/Td (8 - Td or Tdap) 05/01/2027 05/01/2017, 04/22/2008, 08/27/1999, Additional history exists Imm-Hepatitis B Completed 06/21/1997, 07/17, 07/05/1996 Cervical Ablation/Cold-Knife Conization Discontinued Cervical Cryotherapy Discontinued Colposcopy Discontinued Endometrial Biopsy Discontinued Excision/Leep Discontinued HPV Genotyping Discontinued Vaginal Pap Discontinued Vulvoscopy Discontinued [facility] [employer] [facility] Member Subscriber Plan / Payer (Ef fective 2022-Present) Name:Whitley Reyez Relation to Subscriber:Self Name:Whitley Reyez Payer ID:[id number] Group ID:[id number] Type:Medicaid Address: [facility] [address] [place] [address]
== END 2025-02-15 10:11 | disposition home or self-care (01) ==
LOC: HO.HSMS 08:57
PROVIDERS: PCP Physician Assistant; Visit Provider Physician Assistant Medical
DX: G43.E09 Chronic migraine with aura, not intractable, without status migrainosus (principal); M54.6 Pain in thoracic spine; G89.29 Other chronic pain
CPT/HCPCS: 99214; G2211

== ENCOUNTER → 2025-02-15 08:56 | Outpatient (BNVA) | payer OTHER, SELFPAY | PROVIDERS: PCP Physician Assistant; Visit Provider Physician Assistant Medical | DX: G43.E09 Chronic migraine with aura, not intractable, without status migrainosus (principal); M54.6 Pain in thoracic spine; G89.29 Other chronic pain; Z79.899 Other long term (current) drug therapy | CPT/HCPCS: 99212 ==

== ENCOUNTER 2025-04-11 08:52 | Outpatient (AMB) | payer OTHER, SELFPAY ==
[2025-04-11 09:21] VITALS: BP 108/64; PULSE 67; O2SAT 99; BMI 38.3
--- NOTE | 2025-04-11 09:21 | A.OFFVIS_ITS ---
Vital Signs 04/11/25 09:21 Height 5 ft 4 in Weight 223 lb 6 oz BMI 38.3 BP 108/64 Blood Pressure Location Lt brachial Position Sitting Pulse 67 Pulse Source Pulse Oximeter Pulse Oximetry (%) 99 Oxygen Delivery Method Room Air Intake Visit Reasons: Follow up Intake Note: Patient presents follow up Migraine Accompanied by: Self / Same As Patient Allergies amoxicillin Allergy (Unknown, Verified 04/11/25 09:28) Blister azithromycin Allergy (Unknown, Verified 04/11/25 09:28) Hives apples Allergy (Severe, Uncoded 04/11/25 09:28) Anaphylaxis seasonal fruit Allergy (Severe, Uncoded 04/11/25 09:28) itchy throat Medication List - Last Reconciled 04/11/25 by LONA Jones albuterol sulfate 90 mcg/actuation (Ventolin HFA) 2 puffs inhalation Q6H PRN albuterol sulfate mg inhalation Q6H PRN atogepant 60 mg PO DAILY 30 days cholecalciferol (vitamin D3) 50 mcg PO DAILY clonazepam 1 mg PO BID dicyclomine 20 mg PO PRN docusate sodium 100 mg PO BID doxycycline hyclate 100 mg PO BID eletriptan take 1 tab at onset of headache; if no relief, may repeat 1 tab after at least 2 hrs; max = 2 tabs/24 hrs orally . PRN; 30 days MDD 2 tabs epinephrine IM DIRECTED esomeprazole magnesium 20 mg PO QAM fluticasone propion-salmeterol 230-21 mcg/actuation (Advair HFA) 2 puffs inhalation BID lubiprostone 24 mcg PO BID magnesium oxide 400 mg PO BEDTIME 30 days metronidazole 500 mg PO BID montelukast 10 mg PO BEDTIME nabumetone 500 mg PO BID nicotine 1 patch topical DAILY olopatadine 0.1% 1 drp ophthalmic (eye) BID ondansetron 8 mg PO Q8-12H PRN 30 days quetiapine 25 mg PO BID riboflavin (vitamin B2) 400 mg PO DAILY 30 days rizatriptan 5 - 10 mg (0.5 - 1 x 10 mg) PO Q2H PRN 21 days tiotropium bromide 2.5 mcg/actuation 2 puffs inhalation DAILY vortioxetine (Trintellix) 10 mg PO DAILY zolpidem ER 12.5 mg PO BEDTIME PRN HPI Comments Details: 39-yr-old female presents for f/u visit. Pt reports she underwent cervical repair of C5-C6 and C6-C7 on 01/10/[address] Ba, neurosurgeon. Pt denies any post-op complications. Pt reports she has helped to reduce her neck and arm pain, however she has decreased BUE tingling. Pt reports she may be advised to undergo UE EMG/NCS and Kelli Mendoza PA-C, ortho. Patient reports she is currently undergoing treatment with Flagyl, doxycycline and topical antifungal for BPV. Since her last visit, her qulipta was increased to 60mg qd. She states that the migraines are occurring less frequently. * She is now having 2 headache days per week, and 3 migraine days per month. * When she has a severe migraine, she takes her eletriptan or rizatriptan, which is helpful. Her psychiatry team recently started patient on low dose trileptal. * She notes she has always been prone to lightheadedness, vertigo. She is working on her stress management. She did have an interval home sleep study, which was inconclusive. Patient was offered a follow-up in-lab sleep study, however patient states she does not have transportation for this. Baseline headache characteristics: Headache questionnaire: Headache: 6/10, Small pulsating pain, Right frontal, behind the ears, or base of neck, or crown of head. If headache is frontal, she may see spots. Sometimes may have photophobia, phonophobia, osmophobia. Postdrome: Fatigue, low energy Migraine questionnaire: Aura: Sparkling and flashing lights a few minutes before. Headache: Severe 10/10, Feels like an internal jackhammer, pounding holocranial pain a/w Flashing lights, sees black dots, Photophobia, phonophobia, osmophobia, nausea, GI upset, generalized weakness, not quite right in space dizziness, orthostatic, lightheadedness, aggravate arthritis symptoms, itchy/teary eyes, brain fog w/ some stuttering, spacing out, activity intolerance. [facility] Medical History Memory difficulties Heart murmur Depression Bronchitis Arthritis Restless leg syndrome Anemia GERD (gastroesophageal reflux disease) Surgical History H/O neck surgery H/O hernia repair H/O tubal ligation History of tonsillectomy History of surgery on lower extremity Family History Family/Other Bipolar 1 disorder Brain cancer Ovarian ca Diabetes Emphysema of left lung HTN (hypertension) Thyroid disease Allergic rhinitis Sarcoma Social History Alcohol intake: current Patient Tobacco Use Status: Current everyday Tobacco user Substance Use Type: Marijuana Physical Exam Vital Signs: Last Vital Signs Pulse 67 04/11/25 09:21 BP 108/64 04/11/25 09:21 Pulse Ox 99 04/11/25 09:21 Oxygen Delivery Method Room Air 04/11/25 09:21 BMI result Body Mass Index 38.3 Const General: cooperative and no acute distress Orientation/consciousness: patient oriented x3 Resp Effort & Inspection: normal respiratory effort and able to speak in complete sentences Neuro General: patient oriented x3 Cranial nerves: Yes CN's II-XII intact bilaterally Cognition (Neuro): normal cognition Gait exam (Neuro): Normal gait present Motor exam (neuro): 5/5 motor strength present throughout Psych Appearance: grossly normal Mental Status: mental status grossly normal Speech and movement: Normal speech and movement present Affect: normal affect Attitude: cooperative Assessment & Plan Assessment & Plan (1) Chronic migraine with aura: Code(s): G43.109 - Migraine with aura, not intractable, without status migrainosus Category: Medical Qualifiers: Intractability: not intractable Status migrainosus presence: without status migrainosus Qualified Code(s): G43.E09 - Chronic migraine with aura, not intractable, without status migrainosus (2) Neck pain: Code(s): M54.2 - Cervicalgia Category: Medical (3) Excessive daytime sleepiness: Code(s): G47.19 - Other hypersomnia Category: Medical Plan For overall headache management: Continue optimizing good self-care, including but not limited to maintaining a healthy diet and fluid intake, adequate sleep, and engaging in regular physical activity. Track headaches. For sleep: * HST inconclusive * Patient states she is unable to undergo follow-up in-lab PSG due to transportation issues-we will let us know if she is able to transportation. For neck pain, BUE pain/paresthesias, back pain: Follow-up w/ Dr Ba as scheduled. Ortho consult per Dr Ba ? For acute headache treatment: Continue Eletriptan 40mg prn severe migraine, MDD 2 tabs. Continue Rizatriptan prn [id number] migraine- do not take on the same day. Reviewed that either may be repeated after 2 hrs (max 2 whole tabs per day). Continue Ondansetron ODT 8mg q 8-12hrs prn N/V. Previous med trials: Sumatriptan inj- worked, but caused bruising. Sumatriptan and rizatriptan- not always fully effective. ? For headache prevention medication: Continue Riboflavin 400mg qam Continue Magnesium 400mg qhs Continue Atogepant 60mg qhs. * Advised her current oxcarbamazapine may reduce effectiveness of qulipta. Continue senna 1-2 tabs qhs prn constipation. Previous med trials- Amitriptyline- Ineffective. Venlafaxine- ineffective, Topiramate- ineffective, Sphenoid-ganglion blocks- ineffective and not tolerated, Nurtec ODT 75mg qod- not tolerated Migraine tx contraindications- BBs d/t asthma/bronchitis. Note: Pt is needle phobic, and is adverse to taking nasal spray formulations. ? For memory loss: Continue being mindful and using adaptive strategies. ? f/u in 6 months or sooner prn new/worsening s/s. Medications: New varenicline tartrate (Chantix Continuing Month Box) 1 mg PO BID doxycycline hyclate 100 mg PO BID oxcarbazepine 150 mg PO DAILY cyclobenzaprine 5 mg PO BID PRN Coding Level of Care Code Est Pt Level 4 (36610) Diagnoses Chronic migraine with aura without status migrainosus, not intractable G43.E09 Intractability: not intractable Status migrainosus presence: without status migrainosus Neck pain M54.2 Excessive daytime sleepiness G47.19
--- OUTSIDE RECORDS SUMMARY | 2025-04-11 09:29 | XMS_ITS | Clinical Summary ---
Author Organization [facility] Address [address] [place] [address] Care Team Providers Care Chief Deputy Name Role Phone Unavailable Primary Care Provider [...] Pap + HPV 1985 Tobacco Screening 1985 Relationship Safety Screening/Counseling 2000 Hypertension Screening (#1) 2003 Cervical Cancer Screening 2006 Pap Smear 2006 [id number] ( season) 2024 07/27/2022, 05/28/2022, 04/09/2021, Additional history exists Alcohol and Drug Screen 09/15/2024 Depression Annual Screen 09/15/2024 Imm-Influenza (#1) 2025 05/31/2014, 06/21/1997 Imm-DTaP/Tdap/Td (8 - Td or Tdap) 05/01/2027 05/01/2017, 04/22/2008, 08/27/1999, Additional history exists Imm-Hepatitis B Completed 06/21/1997, 07/17, 07/05/1996 HIV Screening Completed 12/24/2018, 04/28/2018 Cervical Ablation/Cold-Knife Conization Discontinued Cervical Cryotherapy Discontinued Colposcopy Discontinued Endometrial Biopsy Discontinued Excision/Leep Discontinued HPV Genotyping Discontinued Vaginal Pap Discontinued Vulvoscopy Discontinued Insurance [employer] Member Subscriber Plan / Payer (Ef fective 2022-Present) Name:Whitley Reyez Relation to Subscriber:Self Name:Whitley Reyez Payer ID:[id number] Group ID:[id number] Type:Medicaid Address: [facility] [address] [place] [address]
== END 2025-04-11 10:27 | disposition home or self-care (01) ==
LOC: HO.HSMS 08:55
PROVIDERS: PCP Physician Assistant; Visit Provider Nurse Practitioner Family
DX: G43.E09 Chronic migraine with aura, not intractable, without status migrainosus (principal); M54.2 Cervicalgia; G47.19 Other hypersomnia
CPT/HCPCS: 99214

== ENCOUNTER → 2025-04-11 08:52 | Outpatient (BNVA) | payer OTHER, SELFPAY | PROVIDERS: PCP Physician Assistant; Visit Provider Nurse Practitioner Family | DX: G43.E09 Chronic migraine with aura, not intractable, without status migrainosus (principal); M54.2 Cervicalgia; G47.19 Other hypersomnia | CPT/HCPCS: 99212 ==